=== PATIENT | male | born 1980 | race Caucasian/White ===

== ENCOUNTER 2017-11-20 22:37 | Emergency (ER) | payer BC, OTHER ==
[~2017-11-20] VITALS: Ht 175.3 cm; Wt 90.7 kg
[2017-11-20 22:40] VITALS: BP 132/72
--- NOTE | 2017-11-21 00:28 | NUR ---
CALLED PT NAME X3. PT LEFT PER ADMITTING.
== END 2017-11-21 00:35 | disposition left against medical advice (07) ==
LOC: ER 22:37
DX: Z53.21 Procedure and treatment not carried out due to patient leaving prior to being seen by health care provider (principal)
CPT/HCPCS: A4606; Z7610

== ENCOUNTER 2018-08-25 14:19 | Emergency (ER) | payer BC ==
[~2018-08-25] VITALS: Ht 177.8 cm; Wt 86.2 kg
--- NOTE | 2018-08-25 15:10 | NUR ---
C/O TESTICULAR PAIN X 1 HR SEEN AT [facility]RGENT [facility]ARE AND SENT HERE TO R/O TORSION - GIVEN MOTRIN PAIN BETTER. PT AAOX4, VSS. DENIES ANY OTHER DISCOMFORT @ THIS TIME. PT SEEN & EVAL'D BY DR. RUTLEDGE & WILL CONT TO MONITOR.
--- NOTE | 2018-08-25 16:19 | NUR ---
Patient discharged to home in stable condition. Written and verbal after care instructions given. Patient verbalizes understanding of instruction.
[2018-08-25 16:20] VITALS: BP 128/78
[2018-08-25 16:52] LABS: APPEARANCE,URINE CLEAR (CLEAR); BILIRUBIN,URINE NEGATIVE (NEGATIVE); BLOOD, URINE NEGATIVE Ery/uL (NEGATIVE); COLOR,URINE YELLOW (YELLOW); KETONES,URINE NEGATIVE (NEGATIVE); LEUKOCYTE ESTERASE ,URINE NEGATIVE (NEGATIVE); NITRITE, URINE NEGATIVE (NEGATIVE); PROTEIN,URINE NEGATIVE (NEGATIVE); UGLUCOSE NEGATIVE (NEGATIVE); UROBILINOGEN,URINE 0.2 EU/dL (0.2)
== END 2018-08-25 16:20 | disposition home or self-care (01) ==
LOC: ER 14:19
DX: N50.89 Other specified disorders of the male genital organs (principal); F17.200 Nicotine dependence, unspecified, uncomplicated; Z60.2 Problems related to living alone
CPT/HCPCS: 76870; 81001; 87491; 87591; 99284; A4606; Z7610; 81000-TC